=== PATIENT | female | born 1980 | race Caucasian/White ===

== ENCOUNTER 2017-10-13 19:03 | Emergency (ER) | payer OTHER, SELFPAY ==
[2017-10-13 19:05] VITALS: BP 143/88; PULSE 81; RESP 16; TEMP 37; O2SAT 98; BMI 31.4
--- NOTE | 2017-10-13 19:33 | ED.VISSUMM ---
- ER Visit Summary Date of Service: 10/13/17 Chief Complaint: Left index finger laceration History of Present Illness: The patient is a 37 F who cut her left index finger 2 hours ago. She cut with a knife. Tetanus is up-to-date. She went to an urgent care and they referred her here. Physical Examination: Vital signs reviewed. She has 1.5 cm linear superficial laceration of the left index finger. It does not involve the nail. It is on the distal pad. It does not cross the joint Test Results: None performed Emergency Department Course and Treatment: The patient's laceration is superficial. It was repaired with Dermabond after cleaning with chlorhexidine. She will follow-up as needed Treatment Plan: [] Disposition: Discharge Impression: Superficial left index finger laceration, 1.5 cm Dermabond by ED physician This note was generated with [employer] dictation software. It may contain incorrect words, spelling, and punctuation that were not noted in review of the chart prior to signing ED Disposition - Plan for ED Patient: Chief Complaint: Laceration
--- NOTE | 2017-10-13 19:34 | ED.DEP ---
ED Disposition - Plan for ED Patient: Disposition: Home or Assisted Living Chief Complaint: Laceration Instructions: ED Laceration Ext Skin Glue
== END 2017-10-13 19:48 | disposition home or self-care (01) ==
LOC: ED 19:44
PROVIDERS: Emergency Provider Emergency Medicine
DX: S61.217A Laceration without foreign body of left little finger without damage to nail, initial encounter (principal); W26.0XXA Contact with knife, initial encounter; Y93.9 Activity, unspecified; Y92.9 Unspecified place or not applicable
CPT/HCPCS: 12001; 99282

== ENCOUNTER → 2019-11-05 09:53 | Outpatient (CLI) | payer OTHER, SELFPAY | PROVIDERS: PCP Family Medicine; Referring Provider Family Medicine; Visit Provider Family Medicine | DX: Z20.828 Contact with and (suspected) exposure to other viral communicable diseases (principal); J02.9 Acute pharyngitis, unspecified; M79.10 Myalgia, unspecified site; R05 Cough | CPT/HCPCS: 87635; 94799; U0003 ==